=== PATIENT | female | born 1995 | race Caucasian/White ===

== ENCOUNTER 2016-10-15 22:39 | Observation (INO) | payer OTHER ==
[2016-10-15 23:09] LABS: BILIRUBIN,URINE NEGATIVE (NEG); GLUCOSE,URINE 250 mg/dL (NEG); NITRITE,URINE NEGATIVE (NEG); PH,URINE 5.5; PROTEIN,URINE 30 mg/dL (NEG-TRACE)
[2016-10-15 23:14] LABS: BACTERIA,URINE MANY /HPF (0-FEW); RBC,URINE RARE /HPF (0-2); SQUAMOUS EPITHELIAL CELL,UR MANY /LPF
[2016-10-15 23:17] LABS: BARBITURATES NEG (NEG); BENZODIAZEPINES NEG (NEG); CANNABINOIDS NEG (NEG); COCAINE NEG (NEG); METHADONE NEG (NEG); OPIATES NEG (NEG); PHENCYCLIDINE NEG (NEG)
[2016-10-15] MEDS ORDERED: IV RINGERS,LACTATED 500ML 500 ML IV ONE (23:45)
[2016-10-16] MEDS ORDERED: SMZ/TMP 800/160MG TABLET. PO ONE (00:15)
== END 2016-10-16 00:53 | disposition home or self-care (01) ==
LOC: 3 SO LND 22:39
PROVIDERS: ADMIT Obstetrics & Gynecology; ATTEND Obstetrics & Gynecology
DX: O26.892 Other specified pregnancy related conditions, second trimester (principal); R10.2 Pelvic and perineal pain; Z3A.19 19 weeks gestation of pregnancy
CPT/HCPCS: 81001; 87086; 96360; G0378; G0379; G0481; J7120

== ENCOUNTER 2016-12-13 15:08 | Emergency (ER) | payer OTHER ==
[~2016-12-13] VITALS: Ht 162.6 cm; Wt 82.6 kg
[2016-12-13 15:20] VITALS: BP 126/77
[2016-12-13] MEDS ORDERED: TRIA15OI TP (16:18)
--- NOTE | 2016-12-13 16:19 | PHYS DOC ---
Past Medical History Past Medical History: No Pertinent History Past Surgical History: Appendectomy Alcohol Use: None Drug Use: None Adult General Chief Complaint Chief Complaint: SKIN RASH/ABSCESS [facility] HPI Patient is a 21 year old female with no significant medical history who presents today with a pruritic rash throughout her body that began yesterday. She is currently 29 weeks , she is a 1 para 0 and states she follows up with her OB. Patient denies any known cause for the rash. She is currently on Benadryl. Denies any urgency frequency dysuria. Review of Systems Review of Systems Constitutional: Denies fever or chills [] Eyes: Denies change in visual acuity, redness, or eye pain [] HENT: Denies nasal congestion or sore throat [] Respiratory: Denies cough or shortness of breath [] Cardiovascular: No additional information not addressed in HPI [] GI: Denies abdominal pain, nausea, vomiting, bloody stools or diarrhea [] : Denies dysuria or hematuria [] Musculoskeletal: Denies back pain or joint pain [] Integument: rash Neurologic: Denies headache, focal weakness or sensory changes [] Endocrine: Denies polyuria or polydipsia [] Allergies Allergies Allergies Coded Allergies Type Severity Reaction Last Updated Verified No Known Drug Allergies 10/15/16 No Physical Exam Physical Exam Constitutional: Well developed, well nourished, no acute distress, non-toxic appearance. [] HENT: Normocephalic, atraumatic, bilateral external ears normal, oropharynx moist, no oral exudates, nose normal. [] Eyes: PERRLA, EOMI, conjunctiva normal, no discharge. [] Neck: Normal range of motion, no tenderness, supple, no stridor. [] Cardiovascular:Heart rate regular rhythm, no murmur [] Lungs & Thorax: Bilateral breath sounds clear to auscultation [] Abdomen: Bowel sounds normal, soft, no tenderness, no masses, no pulsatile masses. [] Skin: Mild amount of erythematous macular papular rash on bilateral upper and lower extremities. Back: No tenderness, no CVA tenderness. [] Extremities: No tenderness, no cyanosis, no clubbing, ROM intact, no edema. [] Neurologic: Alert and oriented X 3, normal motor function, normal sensory function, no focal deficits noted. [] Psychologic: Affect normal, judgement normal, mood normal. [] Current Patient Data Vital Signs Vital Signs Date Time Temp Pulse Resp B/P (MAP) Pulse Ox O2 Delivery O2 Flow Rate FiO2 12/13/16 15:20 98.1 118 16 97 Room Air 98.1 EKG EKG [] Radiology/Procedures Radiology/Procedures [] Course & Med Decision Making Course & Med Decision Making Pertinent Labs and Imaging studies reviewed. (See chart for details) This is a 29 week female patient who presents today with contact dermatitis rash from unknown cause. She is a 1 para 0. She follows up with her OB. She has an appointment in one and a half weeks. She is currently on Benadryl. She'll be discharged with triamcinolone cream. Heart tones 144. Patient had a HR of 119 on arrival to the ED with no chest pain or shortness of breath. We did give her oral fluids and her HR came down to 88 i recommended she pushes fluids to help prevent dehydration. Dragon Disclaimer Dragon Disclaimer This electronic medical record was generated, in whole or in part, using a voice recognition dictation system. Departure Departure Impression: Primary Impression: Contact dermatitis Additional Impressions: Tachycardia Dehydration during Disposition: HOME, SELF-CARE Condition: STABLE Referrals: NO PCP (PCP) follow up with your OBGYN in one to two weeks Patient Instructions: Contact Dermatitis Additional Instructions: You were seen for contact dermatitis rash. Use the provided cream as ordered. Follow-up with the PAIN MANAGEMENT NURSE scheduled. Come back to the ED for any concerning symptoms. Scripts Triamcinolone Acetonide (TRIAMCINOLONE ACETONIDE 0.1% OINT) 15 Gm Oint...g. 1 TOÑA TP BID for WOUND CARE, #1 TUBE 3 Refills Prov: MARCUS ASHRAF APRN 12/13/16 Problem Qualifiers Primary Impression: Contact dermatitis Contact dermatitis type: unspecified Contact dermatitis trigger: unspecified trigger Qualified Codes: L25.9 - Unspecified contact dermatitis, unspecified cause MARCUS ASHRAF APRN Dec 13, 2016 16:19
== END 2016-12-13 16:34 | disposition home or self-care (01) ==
LOC: ER 15:08
DX: O99.713 Diseases of the skin and subcutaneous tissue complicating pregnancy, third trimester (principal); L25.9 Unspecified contact dermatitis, unspecified cause; O99.613 Diseases of the digestive system complicating pregnancy, third trimester; E86.0 Dehydration; Z3A.29 29 weeks gestation of pregnancy; O26.893 Other specified pregnancy related conditions, third trimester; R00.0 Tachycardia, unspecified; Z90.49 Acquired absence of other specified parts of digestive tract
CPT/HCPCS: 99283

== ENCOUNTER 2018-09-17 16:30 | Emergency (ER) | payer BC, OTHER ==
[~2018-09-17] VITALS: Ht 162.6 cm; Wt 70.3 kg
[~2018-09-17 16:30] MED LIST: TRIA15OI TP
--- NOTE | 2018-09-17 16:45 | PHYS DOC ---
Past Medical History Past Medical History: No Pertinent History Past Surgical History: Appendectomy Alcohol Use: None Drug Use: None Adult General Chief Complaint Chief Complaint: CHEST WALL PAIN HPI HPI Patient is a 23 year old female presents to the ED complaining of chest pain times 35 minutes ago. Patient states that she was sitting at her desk at work and started to get right sided chest pain. States the pain traveled to her shoulder and down her right arm. States her arm felt numb and tingling. Describes the pain as pressure/sharp. Rates the pain as 6 out of 10. No history of any medical problems. Patient states she has a history of a torn labrum to right shoulder. Patient does have pain with range of motion. Denies shortness of breath, lower leg swelling, abdominal pain, nausea/vomiting, weakness, dizziness, neck pain, jaw pain, vision changes or fever. Review of Systems Review of Systems Constitutional: Denies fever or chills [] Eyes: Denies change in visual acuity, redness, or eye pain [] HENT: Denies nasal congestion or sore throat [] Respiratory: Denies cough or shortness of breath [] Cardiovascular: No additional information not addressed in HPI [] GI: Denies abdominal pain, nausea, vomiting, bloody stools or diarrhea [] : Denies dysuria or hematuria [] Musculoskeletal: Denies back pain or joint pain [] Integument: Denies rash or skin lesions [] Neurologic: Denies headache, focal weakness or sensory changes [] All other systems were reviewed and found to be within normal limits, except as documented in this note. Current Medications Current Medications Current Medications Medications (Trade) Dose Ordered Sig/[facility] Start Time Stop Time Status Last Admin Dose Admin Ketorolac Tromethamine (Toradol 30mg Vial) 30 mg 1X ONCE 09/17/18 17:15 09/17/18 17:16 DC 09/17/18 17:15 30 MG Allergies Allergies Allergies Coded Allergies Type Severity Reaction Last Updated Verified No Known Drug Allergies 10/15/16 No Physical Exam Physical Exam Constitutional: Well developed, well nourished, no acute distress, non-toxic appearance. [] HENT: Normocephalic, atraumatic. airway patent. Eyes: PERRLA, EOMI, conjunctiva normal, no discharge. [] Neck: Normal range of motion, no tenderness, supple, no stridor. [] Cardiovascular:Heart rate regular rhythm, no murmur. Mild right superior chest wall tenderness. Worse with ROM. No overlying skin changes.[] Lungs & Thorax: Bilateral breath sounds clear to auscultation [] Abdomen: Bowel sounds normal, soft, no tenderness, no masses, no pulsatile masses. [] Skin: Warm, dry, no erythema, no rash. [] Back: No tenderness, no CVA tenderness. [] Extremities: No bony tenderness, no cyanosis, no clubbing, ROM intact. Patient has pain in right anterior shoulder with flexion. no edema. [] Neurologic: Alert and oriented X 3, normal motor function, normal sensory function, no focal deficits noted. [] Psychologic: Affect normal, judgement normal, mood normal. [] Current Patient Data Vital Signs Vital Signs Date Time Temp Pulse Resp B/P (MAP) Pulse Ox O2 Delivery O2 Flow Rate FiO2 09/17/18 16:50 98.2 84 15 112/71 (85) 96 Room Air 98.2 Lab Values Laboratory Tests Test 09/17/18 17:00 White Blood Count 6.1 x10^3/uL (4.0-11.0) Red Blood Count 4.41 x10^6/uL (3.50-5.40) Hemoglobin 13.0 g/dL (12.0-15.5) Hematocrit 39.1 % (36.0-47.0) Mean Corpuscular Volume 89 fL (79-100) Mean Corpuscular Hemoglobin 30 pg (25-35) Mean Corpuscular Hemoglobin Concent 33 g/dL (31-37) Red Cell Distribution Width 13.3 % (11.5-14.5) Platelet Count 193 x10^3/uL (140-400) Neutrophils (%) (Auto) 51 % (31-73) Lymphocytes (%) (Auto) 40 % (24-48) Monocytes (%) (Auto) 8 % (0-9) Eosinophils (%) (Auto) 1 % (0-3) Basophils (%) (Auto) 1 % (0-3) Neutrophils # (Auto) 3.1 x10^3uL (1.8-7.7) Lymphocytes # (Auto) 2.4 x10^3/uL (1.0-4.8) Monocytes # (Auto) 0.5 x10^3/uL (0.0-1.1) Eosinophils # (Auto) 0.0 x10^3/uL (0.0-0.7) Basophils # (Auto) 0.0 x10^3/uL (0.0-0.2) Sodium Level 137 mmol/L (136-145) Potassium Level 4.0 mmol/L (3.5-5.1) Chloride Level 102 mmol/L (98-107) Carbon Dioxide Level 24 mmol/L (21-32) Anion Gap 11 (6-14) Blood Urea Nitrogen 12 mg/dL (7-20) Creatinine 0.6 mg/dL (0.6-1.0) Estimated GFR (Cockcroft-Gault) 121.8 BUN/Creatinine Ratio 20 (6-20) Glucose Level 99 mg/dL (70-99) Calcium Level 9.2 mg/dL (8.5-10.1) Total Bilirubin 0.6 mg/dL (0.2-1.0) Aspartate Amino Transferase (AST) 18 U/L (15-37) Alanine Aminotransferase (ALT) 15 U/L (14-59) Alkaline Phosphatase 45 U/L (46-116) L Troponin I Quantitative < 0.017 ng/mL (0.000-0.055) Total Protein 7.3 g/dL (6.4-8.2) Albumin 3.7 g/dL (3.4-5.0) Albumin/Globulin Ratio 1.0 (1.0-1.7) Laboratory Tests 09/17/18 17:00 Laboratory Tests 09/17/18 17:00 EKG EKG EKG shows Sinus Rhythm at 82 BPM. No STEMI. Radiology/Procedures Radiology/Procedures [] Course & Med Decision Making Course & Med Decision Making Pertinent Labs and Imaging studies reviewed. (See chart for details) []Discussed findings with patient. Patients pain improved with medicine given in the ED. On examination, patient has pain that is reproducible with range of motion. Patient has a history of a torn labrum. When patient has flexion of her right shoulder she develops pain that is reproducible to the pain that she felt across her chest. Patient well-appearing in exam room. States she is feeling much better. Denies any symptoms at this time. Negative troponin and normal EKG findings. Care transitioned to Liliam Ian WILLS awaiting imaging results and disposition at 5:30pm. [place] Disclaimer Dragon Disclaimer This electronic medical record was generated, in whole or in part, using a voice recognition dictation system. Departure Departure Impression: Primary Impression: Chest wall pain Disposition: HOME, SELF-CARE Condition: STABLE Referrals: NO PCP (PCP) Patient Instructions: Chest Wall Pain MARICRUZ WEST Sep 17, 2018 16:45
[2018-09-17 17:06] LABS: BASO % 1 % (0-3); EOS % 1 % (0-3); HEMATOCRIT 39.1 % (36.0-47.0); LYMPH # 2.4 x10^3/uL (1.0-4.8); LYMPH % 40 % (24-48); MEAN CORPUSCULAR HEMOGLOBIN 30 pg (25-35); MEAN CORPUSCULAR HGB CONC 33 g/dL (31-37); MEAN CORPUSCULAR VOLUME 89 fL (79-100); MONO # 0.5 x10^3/uL (0.0-1.1); MONO % 8 % (0-9); NEUT # 3.1 x10^3uL (1.8-7.7); NEUT % 51 % (31-73); PLATELET COUNT 193 x10^3/uL (140-400); RED BLOOD COUNT 4.41 x10^6/uL (3.50-5.40); RED CELL DISTRIBUTION WIDTH 13.3 % (11.5-14.5); WHITE BLOOD COUNT 6.1 x10^3/uL (4.0-11.0)
[2018-09-17 17:14] LABS: CALCIUM 9.2 mg/dL (8.5-10.1); CREATININE 0.6 mg/dL (0.6-1.0); GFR 121.8
[2018-09-17] MEDS ORDERED: KETOROLAC 30 MG/ML VIAL. IV ONE (17:15)
[2018-09-17 17:20] LABS: ALBUMIN 3.7 g/dL (3.4-5.0); TOTAL BILIRUBIN 0.6 mg/dL (0.2-1.0); TOTAL PROTEIN 7.3 g/dL (6.4-8.2)
[2018-09-17 17:30] VITALS: BP 117/76
--- NOTE | 2018-09-18 06:40 | EKG ---
[facility] [address] [place] [address] Test Date: 2018-09-17 Test Time: 16:46:39 Pat Name: MARCUS SALINAS Department: Room: Gender: F [employer] Supervisor: : 1995 Requested By: MARICRUZ WEST Order Number: [id number] Reading MD: Gautam Brown MD Measurements Intervals [place] Rate: 82 P: 49 AR: 150 QRS: 34 QRSD: 76 T: 16 QT: 358 QTc: 421 Interpretive Statements SINUS RHYTHM Electronically Signed On 09-20-2018 9:49:52 CDT by Gautam Brown MD
--- NOTE | 2018-09-18 07:43 | RAD ---
CHEST AP ONLY Clinical Indication: ER PATIENT. ATRAUMATIC RIGHT SIDE CHEST PAIN RADIATING TO THE RIGHT SIDE NECK, SHORTNESS OF AIR. NO PRIORS. Comparison: None. Findings: The cardiomediastinal silhouette is normal. Lungs are clear. There is no pneumothorax. No pleural effusion is appreciated. No acute bone abnormality. IMPRESSION: No acute cardiopulmonary process. Electronically signed by: Flynn Joyce MD (09/18/2018 7:41 AM) [facility]
== END 2018-09-17 18:52 | disposition home or self-care (01) ==
LOC: ER 16:30
DX: R07.89 Other chest pain (principal); Z90.89 Acquired absence of other organs
CPT/HCPCS: 36415; 71045; 80053; 81025; 84484; 85025; 93005; 96374; 99284; J1885